=== PATIENT | female | born 1990 | race American Indian/Alaskan Native ===

== ENCOUNTER 2018-02-20 15:09 | Emergency (ER) | payer SELFPAY ==
[2018-02-20 15:27] VITALS: BMI 26.2
[2018-02-20 15:38] VITALS: BP 132/77; PULSE 104; RESP 18; TEMP 98.6; O2SAT 98
--- NOTE | 2018-02-20 15:46 | ED PDOC ---
Arrival/HPI - General Time Seen by Provider: 02/20/18 15:30 Historian: Patient - History of Present Illness Narrative History of Present Illness (Text): 02/20/18 15:42 27yo female who present with 2days history of sore throat. Notes odynophagia. Reports multiple history of tonsillitis. Denies fever, chills, nausea, vomiting , abdominal pain, dysphagia, any other complaint. Past Medical History - Provider Review Nursing Documentation Reviewed: Yes Family/Social History - Physician Review Nursing Documentation Reviewed: Yes Family/Social History: Unknown Family HX Allergies/Home Meds Allergies/Adverse Reactions: Allergies No Known Allergies Allergy (Verified 02/20/18 15:27) Review of Systems - Physician Review All systems were reviewed & negative as marked: Yes - Review of Systems Constitutional: Normal Eyes: Normal ENT: Sore Throat Respiratory: Normal Cardiovascular: Normal Gastrointestinal: Normal Genitourinary Female: Normal Musculoskeletal: Normal Skin: Normal Neurological: Normal Endocrine: Normal Hemo/Lymphatic: Normal Psychiatric: Normal Physical Exam Vital Signs Reviewed: Yes Vital Signs Temp Pulse Resp BP Pulse Ox 02/20/18 15:37 98.6 F 104 H 18 132/77 98 Temperature: Afebrile Blood Pressure: Normal Pulse: Regular Respiratory Rate: Normal Appearance: Positive for: Well-Appearing, Non-Toxic, Comfortable Pain Distress: None Mental Status: Positive for: Alert and Oriented X 3 - Systems Exam Head: Present: Atraumatic, Normocephalic Pupils: Present: PERRL Extroacular Muscles: Present: EOMI Conjunctiva: Present: Normal Mouth: Present: Moist Mucous Membranes Pharnyx: Present: ERYTHEMA, TONSILS ENLARGED, Peritonsilar Swelling. No: EXUDATE, Uvular Deviation, Muffled/Hoarse Voice, Strider, Soft Palate/Uvular Edema Neck: Present: Normal Range of Motion Respiratory/Chest: Present: Clear to Auscultation, Good Air Exchange. No: Respiratory Distress, Accessory Muscle Use Cardiovascular: Present: Regular Rate and Rhythm, Normal S1, S2. No: Murmurs Abdomen: No: Tenderness, Distention, Peritoneal Signs Back: Present: Normal Inspection Upper Extremity: Present: Normal Inspection. No: Cyanosis, Edema Lower Extremity: Present: Normal Inspection. No: Edema Neurological: Present: GCS=15, CN II-XII Intact, Speech Normal Skin: Present: Warm, Dry, Normal Color. No: Rashes Psychiatric: Present: Alert, Oriented x 3, Normal Insight, Normal Concentration Disposition/Present on Arrival - Present on Arrival Any Indicators Present on Arrival: No History of DVT/PE: No History of Uncontrolled Diabetes: No Urinary Catheter: No History of Decub. Ulcer: No History Surgical Site Infection Following: None - Disposition Have Diagnosis and Disposition been Completed?: Yes Diagnosis: Acute tonsillitis Disposition: HOME/ ROUTINE Disposition Time: 15:45 Patient Plan: Discharge Condition: STABLE Discharge Instructions (ExitCare): Sore Throat, Adult (DC) Additional Instructions: Follow up with the clinic Return to ED for any new symptoms Prescriptions: Penicillin VK [Penicillin VK Tab] 250 mg PO BID #28 tab Referrals: Violet Luz, [Primary Care Provider] - Follow up with primary [facility] at [facility] [Outside] - Follow up with primary
== END 2018-02-20 17:00 | disposition home or self-care (01) ==
LOC: ED 15:09
DX: J03.90 Acute tonsillitis, unspecified (principal)
CPT/HCPCS: 96372; 99283; J1100

== ENCOUNTER 2018-03-14 10:47 | Emergency (ER) | payer SELFPAY ==
[2018-03-14 11:17] VITALS: BMI 25.2
[2018-03-14 11:34] VITALS: RESP 18; TEMP 98.8
--- NOTE | 2018-03-14 13:04 | ED PDOC ---
Arrival/HPI - General Historian: Patient - History of Present Illness Time/Duration: < week (2 days) Symptom Onset: Gradual Symptom Course: Unchanged Context: Home - General Chief Complaint: ENT Problem Time Seen by Provider: 03/14/18 13:00 - History of Present Illness Narrative History of Present Illness (Text): 03/14/18 13:00 Elle Peres is a 28 year old female who presents to the emergency department complaining of 2 day duration of sore throat and swollen tonsils. Patient states that she frequently gets throat infections which improved with steroid and antibiotics. Patient notes that she had chills while at home. Patient denies any fever, nasal congestion, ear pain, cough, abdominal pain, sick contacts, or any other complaints at this time. (Valerie Pavon) Past Medical History - Provider Review Nursing Documentation Reviewed: Yes - Infectious Disease Hx of Infectious Diseases: None - Psychiatric Hx Substance Use: No - Anesthesia Hx Anesthesia: No Family/Social History - Physician Review Nursing Documentation Reviewed: Yes Family/Social History: No Known Family HX Smoking Status: Never Smoked Hx Alcohol Use: No Hx Substance Use: No Allergies/Home Meds Allergies/Adverse Reactions: Allergies No Known Allergies Allergy (Verified 02/20/18 15:27) Review of Systems - Physician Review All systems were reviewed & negative as marked: Yes - Review of Systems Constitutional: absent: Fevers, Night Sweats Eyes: absent: Vision Changes ENT: Sore Throat, Other (Swollen Tonsils). absent: Hearing Changes Respiratory: absent: SOB, Cough Cardiovascular: absent: Chest Pain Gastrointestinal: absent: Abdominal Pain Genitourinary Female: absent: Dysuria, Frequency Musculoskeletal: absent: Arthralgias, Back Pain Skin: absent: Rash, Pruritis Neurological: absent: Headache, Dizziness Endocrine: absent: Diaphoresis Hemo/Lymphatic: absent: Adenopathy Psychiatric: absent: Anxiety, Depression Physical Exam Vital Signs Reviewed: Yes Temperature: Afebrile Blood Pressure: Normal Pulse: Regular Respiratory Rate: Normal Appearance: Positive for: Well-Appearing, Non-Toxic, Comfortable Pain Distress: None Mental Status: Positive for: Alert and Oriented X 3 - Systems Exam Head: Present: Atraumatic Pupils: Present: PERRL Extroacular Muscles: Present: EOMI Conjunctiva: Present: Normal Ears: Present: Normal Mouth: Present: Moist Mucous Membranes, Normal Lips, Normal Tounge, Normal Teeth. No: Dry, Drooling, Trismus Pharnyx: Present: ERYTHEMA, TONSILS ENLARGED, Other (Bilateral Tonsil edema and erythema; positive anterior cervical lymphadenopathy). No: EXUDATE, Peritonsilar Swelling, Uvular Deviation, Muffled/Hoarse Voice, Strider, Soft Palate/Uvular Edema Nose (External): Present: Atraumatic Nose (Internal): Present: Normal Inspection, Moist, Clear Mucous, Other (nasal congestion noted). No: Engorged, Septal Hematoma Neck: Present: Normal Range of Motion Respiratory/Chest: Present: Clear to Auscultation, Good Air Exchange. No: Respiratory Distress, Accessory Muscle Use Cardiovascular: Present: Regular Rate and Rhythm, Normal S1, S2. No: Murmurs Abdomen: No: Tenderness, Distention, Peritoneal Signs Vital Signs Temp Pulse Resp BP Pulse Ox 03/14/18 13:25 82 18 116/80 98 03/14/18 11:33 98.8 F 92 H 18 115/62 100 Medical Decision Making ED Course and Treatment: 03/14/18 13:05 Patient is nontoxic well appearing in no distress. Vital signs are stable Tolerating p.o. fluids and solids Motrin 400 mg p.o. amoxicillin PO pt does not want decadron injection; would prefer pills. prednisone po I advised follow up with primary care physician and ENT specialist within the next 2 days, advised to increase fluids take medications as prescribed and return if symptoms worsen persist or if new symptoms develop Patient verbalizes understanding of discharge instructions and need for immediate followup. all aspects of this case were discussed the attending of record. IMPRESSION; pharyngitis Motrin every 6 hours as needed for pain/fever reduction Increase fluids Amoxicillin; One tablet 3 times daily x10 days prednisone daily x 4 days. Follow up primary care physician within the next 2 days Follow up with the ENT specialist within the next 2 days. Saltwater gargles, throat lozenges Return if symptoms worsen persist or if the symptoms develop (Valerie Pavon) - Medication Orders Current Medication Orders: Discontinued Medications Amoxicillin (Amoxil 500 Mg Cap) 500 mg PO STAT STA PRN Reason: Protocol Stop: 03/14/18 13:01 Last Admin: 03/14/18 13:22 Dose: 500 mg Ibuprofen (Motrin Tab) 400 mg PO STAT STA Stop: 03/14/18 13:01 Last Admin: 03/14/18 13:22 Dose: 400 mg Prednisone (Prednisone Tab) 40 mg PO STAT ONE Stop: 03/14/18 13:01 Last Admin: 03/14/18 13:22 Dose: 40 mg - Scribe Statement The provider has reviewed the documentation as recorded by the Scribe - Scribe Statement Loni Vega Provider Scribe Attestation: All medical record entries made by the Scribe were at my direction and personally dictated by me. I have reviewed the chart and agree that the record accurately reflects my personal performance of the history, physical exam, medical decision making, and the department course for this patient. I have also personally directed, reviewed, and agree with the discharge instructions and disposition. (Valerie Pavon) Disposition/Present on Arrival - Present on Arrival Any Indicators Present on Arrival: No History of DVT/PE: No History of Uncontrolled Diabetes: No Urinary Catheter: No History of Decub. Ulcer: No History Surgical Site Infection Following: None - Disposition Have Diagnosis and Disposition been Completed?: Yes Disposition Time: 13:01 Patient Plan: Discharge - Disposition Diagnosis: Pharyngitis Disposition: HOME/ ROUTINE Condition: GOOD Discharge Instructions (ExitCare): Sore Throat, Adult (DC) Additional Instructions: Motrin every 6 hours as needed for pain/fever reduction Increase fluids Amoxicillin; One tablet 3 times daily x10 days prednisone daily x 4 days. Follow up primary care physician within the next 2 days Follow up with the ENT specialist within the next 2 days. Saltwater gargles, throat lozenges Return if symptoms worsen persist or if the symptoms develop Prescriptions: Amoxicillin 500 mg PO TID #30 tab Ibuprofen [Motrin Tab] 400 mg PO Q6H PRN #20 tab PRN Reason: Pain, Mild (1-3) predniSONE [predniSONE Tab] 2 tab PO DAILY #8 tab Referrals: Anusha Chacon MD [Staff Provider] - Follow up with primary Alfredo Davis DO [Staff Provider] - Follow up with primary [facility]] - Follow up with primary [facility] [Outside] - Follow up with primary Forms: [employer] (Croatian)
[2018-03-14 13:25] VITALS: BP 116/80; PULSE 82; O2SAT 98
== END 2018-03-14 13:28 | disposition home or self-care (01) ==
LOC: ED 10:47
DX: J02.9 Acute pharyngitis, unspecified (principal)

== ENCOUNTER 2018-04-03 10:03 | Emergency (ER) | payer OTHER ==
[2018-04-03 10:29] VITALS: RESP 18; TEMP 98.3; BMI 26.2
--- NOTE | 2018-04-03 10:52 | ED PDOC ---
Arrival/HPI - General Chief Complaint: Female Genitourinary Time Seen by Provider: 04/03/18 10:49 Historian: Patient - History of Present Illness Narrative History of Present Illness (Text): 04/03/18 10:55 Elle Peres is a 28 year old female who presents to the emergency department complaining of thick white, curdle-like vaginal discharge for a few days. Patient states that she has had a yeast infection before and these symptoms are similar. Patient notes that symptoms began while she was on antibiotics for a throat infection. Patient denies any odor, dysuria, fever, chills, or any other complaints at this time. Time/Duration: < week Symptom Course: Unchanged Activities at Onset: Light Context: Home Past Medical History - Provider Review Nursing Documentation Reviewed: Yes - Infectious Disease Hx of Infectious Diseases: None - Psychiatric Hx Substance Use: No - Anesthesia Hx Anesthesia: No Family/Social History - Physician Review Nursing Documentation Reviewed: Yes Family/Social History: No Known Family HX Smoking Status: Never Smoked Hx Alcohol Use: No Hx Substance Use: No Allergies/Home Meds Allergies/Adverse Reactions: Allergies No Known Allergies Allergy (Verified 04/03/18 10:27) Review of Systems - Physician Review All systems were reviewed & negative as marked: Yes - Review of Systems Constitutional: absent: Fevers, Night Sweats Eyes: absent: Vision Changes ENT: absent: Hearing Changes Respiratory: absent: SOB, Cough Cardiovascular: absent: Chest Pain Gastrointestinal: absent: Abdominal Pain Genitourinary Female: Vaginal Discharge. absent: Dysuria Musculoskeletal: absent: Arthralgias Skin: absent: Rash Neurological: absent: Headache Endocrine: absent: Diaphoresis Hemo/Lymphatic: absent: Adenopathy Psychiatric: absent: Anxiety, Depression Physical Exam - Physical Exam Narrative Physical Exam (Text): Constitutional: No acute distress. Head: Normocephalic. Atraumatic. Eyes: PERRL. ENT: Moist mucous membranes. Neck: Supple. Cardiovascular: Regular rate. Chest: No tenderness. Respiratory: Clear to auscultation bilaterally. GI: Soft. Nontender. Nondistended. Back: No CVA tenderness. Musculoskeletal: No tenderness or swelling of extremities. Skin: No rash. Neurologic: Alert, no focal deficit. Vital Signs Reviewed: Yes Vital Signs Temp Pulse Resp BP Pulse Ox 04/03/18 11:18 76 18 109/78 99 04/03/18 10:28 98.3 F 90 18 122/80 100 Temperature: Afebrile Blood Pressure: Normal Pulse: Regular Respiratory Rate: Normal Appearance: Positive for: Well-Appearing, Non-Toxic, Comfortable Pain Distress: None Mental Status: Positive for: Alert and Oriented X 3 Medical Decision Making ED Course and Treatment: 04/03/18 10:50 Impression: 28 year old female complaining of thick white vaginal discharge for a few days. Plan: -- Diflucan today and in 72 hours. -- POC Urine Test -- Discharge Prior Visits: Notes and results from previous visits were reviewed. Patient was last seen in the emergency department on 03/14/18 for 2 day duration of sore throat and swollen tonsils. Patient was discharged home. - Medication Orders Current Medication Orders: Discontinued Medications Fluconazole (Diflucan) 150 mg PO STAT STA PRN Reason: Protocol Stop: 04/03/18 10:52 Last Admin: 04/03/18 11:16 Dose: 150 mg - Scribe Statement The provider has reviewed the documentation as recorded by the Lydia Vega Provider Scribe Attestation: All medical record entries made by the Lydia were at my direction and personally dictated by me. I have reviewed the chart and agree that the record accurately reflects my personal performance of the history, physical exam, medical decision making, and the department course for this patient. I have also personally directed, reviewed, and agree with the discharge instructions and disposition. Disposition/Present on Arrival - Present on Arrival Any Indicators Present on Arrival: No History of DVT/PE: No History of Uncontrolled Diabetes: No Urinary Catheter: No History of Decub. Ulcer: No History Surgical Site Infection Following: None - Disposition Have Diagnosis and Disposition been Completed?: Yes Diagnosis: Vaginal discharge Disposition: HOME/ ROUTINE Disposition Time: 10:52 Patient Plan: Discharge Condition: STABLE Discharge Instructions (ExitCare): Vulvovaginal Yeast Infection Prescriptions: Fluconazole 1 tab PO ONCE #1 tablet Referrals: PCP,NO [Primary Care Provider] - Follow up with primary Forms: [employer] (Dominican)
[2018-04-03 11:19] VITALS: BP 109/78; PULSE 76; O2SAT 99
== END 2018-04-03 11:20 | disposition home or self-care (01) ==
LOC: ED 10:03
DX: N89.8 Other specified noninflammatory disorders of vagina (principal)